=== PATIENT | female | born 1925 | race Caucasian/White ===

== ENCOUNTER 2016-04-15 11:02 | Observation (INO) | payer OTHER ==
[~2016-04-15] VITALS: Ht 149.9 cm; Wt 67.8 kg
[~2016-04-15 11:02] MED LIST: AMLO-110 PO; ASPCH81 PO; CHOLTAB3 PO; CLINDAMYCIN 600 MG/54 ML D5W IV SCH; CLTP PO; CRS10 PO; FRS/40 PO; LISI40TA PO; NITR0.2D TD; NTRGSL/4 UT; OMEG10007 PO; PRLSR20 PO
[2016-04-15] MEDS ORDERED: METO25TA3 PO (11:33)
[2016-04-15] MEDS ORDERED: ESCI10TA17 PO (11:34)
[2016-04-15] MEDS ORDERED: ERYOPO OPR (11:35)
[2016-04-15] MEDS ORDERED: [UNRECOGNIZED DRUG - OTHER] (11:36)
[2016-04-15] MEDS ORDERED: MELO7.5T5 PO (11:37)
--- NOTE | 2016-04-15 11:39 | History & Physical Bridge Note ---
H&P Re-Evaluation Bridge Note: I have examined the patient, reviewed the History & Physical and in the interval since the performance of the History & Physical I have noted the following changes of clinical significance: No changes noted
--- NOTE | 2016-04-15 11:40 | Procedure Note ---
Pre-Mod Sedation Assessment General Date of Moderate Sedation: Apr 15, 2016. Review Cardiovascular: regular rate, rhythm Abdomen: soft Lungs: lungs clear Airway Class: II Pre-Sedation Airway Assessment Oral Cavity: Dentures, WNL Short Thick Neck: No Hx of Sleep Apnea: No Smoking Status: Never Smoker Mallampati Classification: Class II ASA Classification: Class II Procedure Planning Contraindications-for Mod Sed: None Yes Notes The planned sedation has been discussed with the patient and consent obtained. I have identified the patient, determined the appropriateness of sedation and have assessed the patient immediately prior to the procedure. All medicine(s) and interventions are by my order.
[2016-04-15] MEDS ORDERED: SPRIN/30 INH (11:41)
[2016-04-15] MEDS ORDERED: ALBUAER INH (11:41)
[2016-04-15] MEDS ORDERED: FLUT1INH7 INH (11:41)
[2016-04-15 11:46] VITALS: BP 135/64; PULSE 84; TEMP 36.7; O2SAT 98
[2016-04-15] MEDS ORDERED: LIDOCAINE HCL 1% 20 ML VIAL ONE (12:09)
[2016-04-15] MEDS ORDERED: BUPIVACAINE 0.5 % 5 MG/1 ML MPF 30ML VIAL ONE (12:10)
[2016-04-15] MEDS ORDERED: BACITRACIN 50000 UNIT VIAL ONE (12:10)
[2016-04-15] MEDS ORDERED: MIDAZOLAM HCL 5 MG/ML 1 ML VIAL ONE (12:23)
[2016-04-15] MEDS ORDERED: FENTANYL CITRATE INJ 50 MCG/1 ML 2 ML VIAL ONE (12:23)
--- NOTE | 2016-04-15 13:55 | Procedure Note ---
Post-Mod Sedation Assessment General Date of Moderate Sedation Apr 15, 2016. Vital Signs: Vital Signs Past 12 Hours Date Time Temp Pulse Resp B/P Pulse Ox O2 Delivery O2 Flow Rate FiO2 04/15/16 13:45 80 14 123/68 97 Nasal Cannula 2 04/15/16 11:46 36.7 84 20 135/64 98 Nasal Cannula 2 Review - Discharge Criteria Vital Signs Stable: Yes Alert/Oriented/Conversant: Yes Returned to Baseline Mental St: Yes Nausea Absent/Minimal: Yes Pain/Discomfort/Absent/Minimal: Yes Normal/Baseline Respirations: Yes Active Bleeding?: No Pt Received D/C Instructions: N/A Prescriptions Given: None Specific Proced. D/C Criteria Distal Pulses Present (Cardiac: N/A Groin site assessed-Card Cath: N/A Voided Prior To Discharge: N/A Discharged Patients Adult Escort/Transportation: N/A
[2016-04-15] MEDS ORDERED: ALBUTEROL HFA 8 GM INHALER INH PRN (14:00)
[2016-04-15] MEDS ORDERED: NITROGLYCERIN 0.4 MG SL PER TAB CHARGE UT PRN (14:00)
[2016-04-15] MEDS ORDERED: ACETAMINOPHEN 325 MG TAB PO PRN (14:00)
--- NOTE | 2016-04-15 14:03 | [facility] Post Operative Brief Note ---
Immediate Operative Summary Operative Date Apr 15, 2016. Pre-Operative Diagnosis SND, SYNCOPE, AV BLOCK Post-Operative Diagnosis SAME Procedure(s) Performed DUAL CHAMBER RATE RESPONSIVE PACEMAKER Surgeon NURY SMITH Textile Conversion Manager Surgeon(s) NONE Estimated Blood Loss <10CC Findings NONE Fluids (cc crystalloids) 150CC Specimens NONE Drains NONE Anesthesia 4MG VERSED AND 100MCG FENTANYL Complication(s) None Disposition PCU
--- NOTE | 2016-04-15 14:05 | Discharge Instructions ---
Discharge Instructions Admission Reason for Admission: Syncope Discharge Discharge Diagnosis / Problem: SND, SYNCOPE, AV BLOCK Discharge Goals Goal(s): Improve function Activity Recommendations Activity Limitations: as noted below (DO NOT LIFT THE LEFT ELBOW OVER THE LEFT SHOULDER FOR 1 MONTH OR LIFT MORE THAN 10 POUNDS WITH THE LEFT ARM FOR 2 WEEKS) Shower/Bathe: tomorrow Driving or Machine Use: resume 1 day after discharge . Current Hospital Diet Patient's current hospital diet: AHA Diet (Heart Healthy) Discharge Diet Recommended Diet: AHA Diet (Heart Healthy) Procedures Procedures Performed: DUAL CHAMBER RATE RESPONSIVE PACEMAKER Pending Studies Studies pending at discharge: no Medical Emergencies . Who to Call and When: Medical Emergencies: If at any time you feel your situation is an emergency, please call 911 immediately. . Non-Emergent Contact Non-Emergency issues call your: Station Worker . . "Provider Documentation" section prepared by Onelia Flower. VTE Core Measure Inpt VTE Proph given/why not?: Treatment not indicated
--- NOTE | 2016-04-15 14:09 | Discharge Summary ---
Discharge Summary Date of Service Apr 15, 2016. 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 SPECIAL CARE INSTRUCTIONS: * If bleeding occurs, apply direct pressure to area for 5 minutes. * Call your doctor if you have severe pain, fever, drainage or bleeding at site. * Keep dry for 48 hours. * Keep any scheduled doctor's appointment. * Implant Card - hand held device with website information given. SKIN IRRITATION: * You may experience some redness and/or swelling in the area where radiation was administered. If any skin irritation occurs, please contact your family physician. FOLLOW UP VISIT: Keep any scheduled doctor appointments. Medication Reconciliation Continued Medications: Albuterol Sulfate (Proventil Hfa) 108 Mcg/Act Aer 2 PUFF INH QID PRN for SOB/Wheezing Amlodipine (Norvasc) 5 Mg Tab 5 MG PO DAILY Aspirin (Aspirin Tab-Chewable *) 81 Mg Chew 1 TAB PO DAILY Calcium/Vitamin D (Caltrate 600 Plus *) Tab 2 TAB PO BID Erythromycin Opth (Erythromycin Opth) 12 Appln/3.5 Gm Oint 1 APPLN OPR TID Escitalopram (Lexapro) 10 Mg Tab 10 MG PO DAILY, TAB Fluticasone Furoate-Vilanterol (Breo Ellipta 200-25 Mcg/INH) 1 Inh Inh 1 PUFF INH DAILY Furosemide (Lasix) 40 Mg Tab 80 MG PO DAILY Lisinopril (Zestril) 40 Mg Tab 40 MG PO DAILY Metoprolol Succ (Toprol Xl) (Toprol-Xl) 25 Mg Tabcr 25 MG PO DAILY, #30 TAB Nitroglycerin (Nitrostat) 0.4 Mg Tab 0.4 MG UT PRN Rosuvastatin Calcium (Crestor *) 10 Mg Tab 40 MG PO DAILY Tiotropium [place] (Spiriva Handihaler) 30 Puff/540 Mcg Aerp 2 PUFFS INH DAILY for 30 Days, CAP 3 Refills Admission Information Physical Exam (per Admitting): aaox3, nad nc/at, eomi supple nrl s1,s2 no murmur cta b/l no w/r/r soft no edema b/l Hospital Course Patient admitted for elective permanent pacemaker due to recurrent syncope, intermittent sinus node dysfunction and high degree AV block. Pt underwent procedure without any problems monitored overnight. She was discharged home following morning in stable condition. Total time spent on discharge = This includes examination of the patient, discharge planning, medication reconciliation, and communication with other providers. Discharge Instructions ACTIVITY RECOMMENDATIONS: * Do not raise affected arm over head for 4 weeks. SPECIAL CARE INSTRUCTIONS: * If bleeding occurs, apply direct pressure to area for 5 minutes. * Call your doctor if you have severe pain, fever, drainage or bleeding at site. * Keep dry for 48 hours. * Keep any scheduled doctor's appointment. * Implant Card - hand held device with website information given. SKIN IRRITATION: * You may experience some redness and/or swelling in the area where radiation was administered. If any skin irritation occurs, please contact your family physician. FOLLOW UP VISIT: Keep any scheduled doctor appointments.
[2016-04-15] MEDS ORDERED: ACETAMINOPHEN 325 MG TAB ONE (14:34)
[2016-04-15] MEDS ORDERED: IV FLUIDS COMPLETED PRN (14:45)
[2016-04-15 16:20] VITALS: BP 138/77; PULSE 75; TEMP 36.7; O2SAT 91; Ht 149.9 cm; Wt 67.8 kg
[2016-04-15 19:01] VITALS: BP 133/65; PULSE 59; TEMP 36.6; O2SAT 97
[2016-04-15 20:00] VITALS: O2SAT 97
[2016-04-15] MEDS: ERYTHROMYCIN OP OINT 5 MG/GM 3.5 GM TUBE OPR SCH (20:54)
[2016-04-15] MEDS: CALCIUM 600MG + VIT D 400 IU TAB PO SCH (20:55)
[2016-04-15 23:50] VITALS: BP 134/67; PULSE 60; TEMP 36.6; O2SAT 97
[2016-04-15 23:59] VITALS: O2SAT 95
--- NOTE | 2016-04-16 01:02 | OPERATIVE REPORT ---
DATE OF OPERATION: 04/15/2016 PREOPERATIVE DIAGNOSES: Syncope, sinus node dysfunction, intermittent high degree atrioventricular block, left posterior fascicular block. POSTOPERATIVE DIAGNOSES: Same. PROCEDURE: Dual chamber rate responsive permanent pacemaker under fluoroscopic guidance. SURGEON: Dr. Onelia Flower. PHYSICIAN CREDENTIALING SPECIALIST: None. ANESTHESIA: Monitored anesthetic care given total of 4 mg of Versed, 100 mcg of fentanyl; start time 12:42, end time 13:45. IV FLUIDS: 150 mL. Blood LOSS: Less than 10 mL. URINE OUTPUT: Not applicable. SPECIMENS: None. FINDINGS: None. DRAINS: None. COMPLICATIONS: None. CONDITION: Stable. INDICATIONS: This is an 89-year-old female with past medical history for syncope, worsening dyspnea on exertion, intermittent high degree AV block and sinus node dysfunction, left posterior fascicular block, hypertension, hyperlipidemia and COPD. She was recommended a permanent pacemaker. CONSENT: Consent was obtained prior to patient going into the electrophysiology lab. The patient was informed of risks, benefits and alternatives to the procedure. Risks include but not limited to sudden cardiac , cardiac arrhythmias, cerebrovascular accident, myocardial infarction, injury to the blood vessels, chamber of the heart, lungs, bleeding and infection. The patient understood these risks and agreed to go ahead with the procedure as planned. Informed consent was obtained. DESCRIPTION OF THE PROCEDURE: The patient was brought into the electrophysiology lab in a fasting state. She was connected to continuous cardiac monitoring. Timeout was performed to ensure patient's identity and procedure correctly. The patient was prepped and draped over the left infraclavicular space in normal surgical standard fashion. She received prophylactic antibiotics prior to incision. Monitored conscious sedation was given throughout the procedure for patient's comfort level and universal precautions were maintained throughout the procedure. A 10 mL of 1% lidocaine/bupivacaine mixture were given in the left deltopectoral groove. Incision was made in left deltopectoral groove. Blunt dissection was performed down to identify the cephalic vein. Cephalic vein was identified and isolated using 0 silk ties. The vein was nicked with an 11 blade and a guidewire was inserted without any resistance. An 8-Iraqi sheath was inserted over the guidewire without any resistance. The dilator was removed. A second guidewire was inserted through the 8-Iraqi sheath to allow for retained venous access. The sheath was removed, flushed and dilator reinserted on it and then the sheath was reinserted over one of the guidewires. The guidewire and dilator were removed. The right ventricular lead was advanced into the right ventricle and positioned into the right ventricular apex under fluoroscopic guidance. There was adequate pacing and sensing thresholds and no diaphragmatic stimulation with high output pacing. The 8-Iraqi sheath was peeled away and lead was fixated to the pectoralis muscle using 0 silk suture. A second 8-Iraqi sheath was inserted over the retained guidewire without any resistance. The guidewire and dilator were removed. A right atrial lead was advanced into the right atrium and positioned into the right atrial appendage. Ultimately using a blue J curve stylet. There was adequate pacing and sensing thresholds and no diaphragmatic stimulation with high output pacing. The 8-Iraqi sheath was peeled away and lead was fixated to the pectoralis muscle using 0 silk suture. Then a pacemaker pocket was performed using blunt dissection within the pectoral fascia over the pectoralis muscle. The pocket was flushed with copious amounts of bacitracin saline wash and inspected for hemostasis. The pulse generator was attached to the leads making sure that the pins were in appropriate position, passed the set screws and the set screws were all tightened. The pulse generator was then placed in the pocket, making sure that the leads were lying flat beneath the device. A stay stitch using 0 silk suture was used to secure the device to the pectoralis muscle. An incision was closed in a 3-layer fashion using 2-0 Vicryl interrupted suture followed by a 3-0 Vicryl interrupted suture followed by a 4-0 Monocryl running stitch, and Dermabond was applied. EQUIPMENT: 1. Pulse generator is a [employer] Bailey Barry [id number], serial number [id number]. 2. Right atrial lead, Medtronic 5076-52 cm, serial number [id number]. 3. Right ventricular lead, Medtronic 5076-58 cm, serial number [id number]. INTRAOPERATIVE TESTIN. Right atrial lead: P-wave sensing 2.9 millivolts, impedance 62 ohms, threshold 0.7 volts at 1.4 milliamps. 2. Right ventricular lead: R-wave sensing 3.1 millivolts, impedance 864 ohms, threshold 0.3 volts at 0.3 milliamps. FINAL MEASUREMENTS THROUGH THE DEVICE: 1. Right atrial lead: P-wave sensing 1.8 millivolts, impedance 437 ohms, threshold 0.75 volts at 0.4 milliseconds. 2. Right ventricular lead: R-wave sensing 2.1 millivolts, but unipolar was 6.1 millivolts, impedance 513 ohms, threshold 0.75 volts at 0.4 milliseconds. FINAL PARAMETERS: MVP-R 60/110. Right atrial amplitude 3.5 volts, pulse width 0.4 milliseconds, sensitivity 0.3 millivolts. Right ventricular amplitude 3.5 volts, pulse width 0.4 milliseconds, sensitivity 0.9 millivolts. IMPRESSION: Successful implantation of a dual chamber rate responsive permanent pacemaker secondary to syncope, intermittent high degree atrioventricular block and sinus node dysfunction. PLAN: Monitor patient overnight, 12-lead ECG, chest x-ray, continue her home medications. She is not allowed to lift the left elbow or left shoulder for 1 month, and not lifting more than 10 pounds with the left arm for 2 weeks. She should follow up in our [facility] office in 7-10 days for device and wound check. I attest to the content of the Intraoperative Record and any orders documented therein. Any exceptions are noted below. JORDANA
[2016-04-16 04:06] VITALS: BP 151/80; PULSE 61; TEMP 36.7; O2SAT 97
--- NOTE | 2016-04-16 07:35 | DIAGNOSTIC IMAGING REPORT ---
CHEST 2 VIEWS ROUTINE CLINICAL HISTORY: Chest x-ray status post pacemaker placement COMPARISON STUDY: 08/16/2015 FINDINGS: The heart is enlarged. There has been interval placement of a left subclavian dual-chamber central venous pacemaker. There is no pneumothorax. The lead position is unremarkable. There is mild pulmonary venous hypertension. There is no lobar consolidation.[ There are no cystic or pleural effusions. IMPRESSION: No evidence of pneumothorax status post placement of a left subclavian dual-chamber central venous pacemaker Electronically signed by: Benton Guzman M.D. 04/16/2016 7:34 AM Dictated Date/Time: 04/16/2016 7:33 AM
[2016-04-16] MEDS: ERYTHROMYCIN OP OINT 5 MG/GM 3.5 GM TUBE OPR SCH (08:32)
[2016-04-16] MEDS: CALCIUM 600MG + VIT D 400 IU TAB PO SCH (08:33)
[2016-04-16 08:38] VITALS: BP 149/58; PULSE 59; TEMP 36.7; O2SAT 97
[2016-04-16] MEDS ORDERED: METOPROLOL SUCC 25MG EXT REL TAB PO SCH (09:00)
[2016-04-16] MEDS ORDERED: TIOTROPIUM BROMIDE 5 PUFF/90 MCG INH INH SCH (09:00)
[2016-04-16] MEDS ORDERED: ASPIRIN 81 MG CHEW PO SCH (09:00)
[2016-04-16] MEDS ORDERED: ROSUVASTATIN CALCIUM 20 MG TAB PO SCH (09:00)
[2016-04-16] MEDS ORDERED: ESCITALOPRAM OXALATE 10 MG TAB PO SCH (09:00)
[2016-04-16] MEDS ORDERED: AMLODIPINE BESYLATE 5 MG TAB PO SCH (09:00)
[2016-04-16] MEDS ORDERED: FUROSEMIDE 80 MG TAB PO SCH (09:00)
[2016-04-16] MEDS ORDERED: LISINOPRIL 40 MG TAB PO SCH (09:00)
[2016-04-16 10:31] VITALS: BP 149/58; PULSE 59; TEMP 36.7; O2SAT 97
--- NOTE | 2016-04-17 12:33 | Cardiology Follow-Up ---
Subjective Subjective Date of Service: Apr 16, 2016. Pt evaluation today including: conversation w/ patient, physical exam Pain: minimal at incision site Review of Systems Constitutional: No fatigue, No fever Respiratory: No dyspnea at rest, No shortness of breath Cardiac: No chest pain, No edema, No palpitations Abdomen: No nausea, No vomiting Objective Vital Signs Last Vital Signs Documentation Date Time Temp Pulse Resp B/P Pulse Ox O2 Delivery O2 Flow Rate FiO2 04/16/16 10:31 36.7 59 18 97 Room Air 04/16/16 08:38 149/58 2.0 Physical Exam: General Appearance: WD/WN, no apparent distress Eyes: bilateral eyes EOMI, bilateral eyes PERRL Neck: supple, no JVD Respiratory/Chest: lungs clear, normal breath sounds Cardiovascular: regular rate, rhythm, no edema, no murmur Abdomen: soft Extremities: no pedal edema Neurologic/Psychiatric: alert, oriented x 3 Skin: warm/dry, no rash Assessment and Plan IMpression: 1. SND s/p ppm 2. LAFB 3. Intermittent High degree AV block 4. HTN 5. syncope plan; ok for discharge home from cardiac perspective continue home medications and restart bb pt can shower tomorrow pt not allowed to lift her left elbow over left shoulder for 1 month f/u in office for device and wound check in 2 weeks Discharge planning: home Medications: Medications Administered Medications (Trade) Dose Ordered Sig/Juan Carlos Route Start Time Stop Time Status Last Admin Dose Admin Clindamycin Phosphate (Cleocin 600mg/ 54ml D5W) 54 ml @ 100 mls/hr PREOP IV 04/15/16 06:00 04/15/16 18:00 DC 04/15/16 06:00 100 MLS/HR Fentanyl Citrate (Fentanyl Inj) 100 mcg STK-MED ONCE .ROUTE 04/15/16 12:23 04/15/16 12:26 DC 04/15/16 12:23 100 MCG Midazolam HCl (Versed Inj) 5 mg STK-MED ONCE .ROUTE 04/15/16 12:23 04/15/16 12:27 DC 04/15/16 12:23 4 MG Amlodipine Besylate (Norvasc Tab) 5 mg DAILY PO 04/16/16 09:00 04/16/16 11:03 DC 04/16/16 08:34 5 MG Aspirin (Aspirin Chew) 81 mg DAILY PO 04/16/16 09:00 04/16/16 11:03 DC 04/16/16 08:33 81 MG Calcium/Vitamin D (Caltrate Plus Tab) 2 tab BID PO 04/15/16 21:00 04/16/16 11:03 DC 04/16/16 08:33 2 TAB Erythromycin (Erythromycin Oph Oint) 1 appln TID OPR 04/15/16 21:00 04/16/16 11:03 DC 04/16/16 08:32 1 APPLN Escitalopram Oxalate (Lexapro Tab) 10 mg DAILY PO 04/16/16 09:00 04/16/16 11:03 DC 04/16/16 08:33 10 MG Furosemide (Lasix Tab) 80 mg DAILY PO 04/16/16 09:00 04/16/16 11:03 DC 04/16/16 08:34 80 MG Lisinopril (Zestril Tab) 40 mg DAILY PO 04/16/16 09:00 04/16/16 11:03 DC 04/16/16 08:34 40 MG Metoprolol Succinate (Toprol Xl Tab) 25 mg DAILY PO 04/16/16 09:00 04/16/16 11:03 DC 04/16/16 08:34 25 MG Rosuvastatin Calcium (Crestor Tab) 40 mg DAILY PO 04/16/16 09:00 04/16/16 11:03 DC 04/16/16 08:33 40 MG Tiotropium [place] (Spiriva Handihaler Inhaler) 1 puff DAILY INH 04/16/16 09:00 04/16/16 11:03 DC 04/16/16 08:32 1 PUFF Acetaminophen (Tylenol Tab) 650 mg STK-MED ONCE .ROUTE 04/15/16 14:34 04/15/16 14:37 DC 04/15/16 14:34 650 MG Lab Results: ecg:ap telemetry; ap pacemaker interrogation; normal function stable from implant cxr; no ptx
== END 2016-04-16 11:03 | disposition home or self-care (01) ==
LOC: C.ACU 11:02 → C.2E 14:01
PROVIDERS: ADMIT Internal Medicine; ATTEND Internal Medicine
DX: I49.5 Sick sinus syndrome (principal); R55 Syncope and collapse; I44.30 Unspecified atrioventricular block; I44.5 Left posterior fascicular block; I45.81 Long QT syndrome; J44.9 Chronic obstructive pulmonary disease, unspecified; I27.2 Other secondary pulmonary hypertension; F41.1 Generalized anxiety disorder; F32.9 Major depressive disorder, single episode, unspecified; Z79.82 Long term (current) use of aspirin; I10 Essential (primary) hypertension; E78.5 Hyperlipidemia, unspecified; Z85.828 Personal history of other malignant neoplasm of skin; M15.9 Polyosteoarthritis, unspecified